=== PATIENT | male | born 1990 | race Caucasian/White ===

== ENCOUNTER 2020-07-04 09:50 | Emergency (ER) | payer OTHER, SELFPAY ==
[2020-07-04 09:51] VITALS: BP 130/86; PULSE 90; RESP 16; TEMP 36.8; O2SAT 100
[2020-07-04 10:00] VITALS: BMI 21.9
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
[2020-07-04 10:09] VITALS: O2SAT 98
--- NOTE | 2020-07-04 10:36 | XR_ITS ---
NOTE: Report was unsigned for reason: Order was edited. Original Signature date and time was: 07/04/20 @1139 WS: [id number] RIGHT HAND: 3 VIEW(S) TECHNIQUE: PA, oblique and lateral. HISTORY: trauma, swelling COMPARISON: None available. Small acute avulsion fractures involving the second and third metacarpal heads. These are predominantly along the medial aspect. There is an additional nondisplaced fracture through the proximal phalanx of the fifth finger. Large amount soft tissue swelling over the dorsal hand. MTDD XR/XR hand RT min 3V* [id number] IMPRESSION: 1. Several small avulsion fractures from the medial second and third metacarpa l heads. 2. Nondisplaced fracture proximal phalanx fifth finger with extension to the m etacarpal phalangeal joint.
[2020-07-04 11:37] VITALS: BP 128/87; PULSE 66; O2SAT 97
[2020-07-04 12:54] VITALS: BP 130/91; PULSE 66; O2SAT 100
--- NOTE | 2020-07-05 08:28 | DCPLANNER ---
Addendum entered by Racheal Mcgovern 07/06/20 11:36: Patients appointment was cancelled due to not being able to reach patient concerning appointment. Addendum entered by Racheal Mcgovern 07/05/20 14:27: Pat from ortho called oil field caser stating that an appointment had been scheduled for patient for July at 8:[address] August. Pat stated that she was unable to speak with patient or leave a message for patient. logistics loss prevention manager called [phone], was told that this was not a working number. logistics loss prevention manager called Pat at ortho, was told that if patient calls oil field caser about appointment to have patient call ortho for appointment information. Original Note: logistics loss prevention manager had message to schedule a follow up appointment for patient with ortho. logistics loss prevention manager called the ortho clinic, spoke with Svetlana, gave clinic patients information. logistics loss prevention manager was told that patients information would be printed and reviewed. Clinic will call patient with appointment information.
== END 2020-07-04 13:04 | disposition home or self-care (01) ==
PROVIDERS: Emergency Provider Nurse Practitioner Family
DX: S62.390A Other fracture of second metacarpal bone, right hand, initial encounter for closed fracture (principal); S62.392A Other fracture of third metacarpal bone, right hand, initial encounter for closed fracture; S62.396A Other fracture of fifth metacarpal bone, right hand, initial encounter for closed fracture; V89.2XXA Person injured in unspecified motor-vehicle accident, traffic, initial encounter
CPT/HCPCS: 12345; 29125; 73120; 73130; 99281; 99283